=== PATIENT | female | born 1995 | race Hispanic/Latino ===

== ENCOUNTER 2016-06-05 09:29 | Emergency (ER) | payer OTHER, SELFPAY ==
[2016-06-05] MEDS ORDERED: KETOROLAC 30 MG/ML VIAL (J1885) As Ordered ONE (10:00)
[2016-06-05 10:25] LABS: BASO # 0.1 K/mm3 (0.0-0.2); BASO % 1.3 % (0.0-1.0); EOS # 0.1 K/mm3 (0.0-0.50); EOS % 1.8 % (0.0-3.0); LARGE UNSTAINED CELL # 0.1 K/mm3 (0.0-0.4); LARGE UNSTAINED CELL % 1.7 % (0.0-4.0); LYMPH # 1.7 K/mm3 (1.5-6.5); LYMPH % 27.8 % (24.0-44.0); MEAN CORPUSCULAR HEMOGLOBIN 26.2 pg (27.0-33.0); MEAN CORPUSCULAR HGB CONC 31.7 g/dl (32.0-36.5); MEAN CORPUSCULAR VOLUME 82.6 fl (80.0-96.0); MONO # 0.5 K/mm3 (0.0-0.8); MONO % 8.2 % (0.0-5.0); NEUTROPHILS # 3.4 K/mm3 (1.8-7.7); NEUTROPHILS % 59.3 % (36.0-66.0); PLATELET COUNT, AUTOMATED 258 k/mm3 (150-450); WHITE BLOOD COUNT 5.8 K/mm3 (4.0-10.0)
[2016-06-05 10:34] LABS: CALCIUM OXALATE CRYSTALS SMALL
[2016-06-05 10:41] LABS: ANION GAP 8 MEQ/L (8-16); BLOOD UREA NITROGEN 9 MG/DL (7-18); CALCIUM LEVEL 8.4 MG/DL (8.5-10.1); CARBON DIOXIDE LEVEL 25 MEQ/L (21-32); CHLORIDE LEVEL 108 MEQ/L (98-107); CREATININE FOR GFR 0.55 MG/DL (0.55-1.02); GLUCOSE, FASTING 89 MG/DL (70-105); HCG, SERUM QUANTITATIVE < 1.0 MIU/ML; POTASSIUM SERUM 4.3 MEQ/L (3.5-5.1); SODIUM LEVEL 141 MEQ/L (136-145)
--- NOTE | 2016-06-05 10:57 | REP ---
Clinical: Acute pelvic and adnexal pain. Rule out torsion . Technique: Transabdominal pelvic ultrasound followed by transvaginal examination for better evaluation of the endometrium and adnexa with color Doppler evaluation of the ovaries. Findings: Bladder is unremarkable and measures 3.2 x 3.3 x 2.1 cm . Normal anteverted uterus measures 8.3 x 5.5 x 3.8 cm . The endometrial complex measures 6.0 mm thickness. No discrete uterine or endometrial abnormalities are appreciated. Bilateral ovaries are normal in appearance and vascularity without evidence for torsion. Right ovary measures 3.5 x 2.5 x 2.1 cm ; R I = 0.53 . Left ovary measures 3.6 x 2.6 x 2.8 cm ; R I = 0.57 . Trace pelvic free fluid is nonspecific. . Impression: 1. Essentially normal pelvic ultrasound. No evidence for ovarian torsion. Signed by Awais Fisher MD 06/05/2016 10:47 A
--- NOTE | 2016-06-05 11:55 | EDDOCDS ---
Physician Documentation [facility] Name: Jessica Deluna Age: 20 yrs Sex: Female : 1995 Arrival Date: 06/05/2016 Time: 09:29 Bed I3 / M3 Private MD: NO PRIMARY PHYSICIAN, . Disposition: 06/05/16 11:44 Discharged to Home/Self Care. Impression: Abdominal and pelvic pain - LLQ, Constipation. - Condition is Stable. - Discharge Instructions: Abdominal Pain, Adult, Constipation, Adult. - Prescriptions for Magnesium Citrate Oral Solution - take 1 bottle by ORAL route once daily; 1 bottle. Miralax 17 gram/dose - take 17 gram by ORAL route once daily As needed dilute in 8 ounces of water or juice; 1 bottle. - Family Work Release, Medication Reconciliation, Local Pharmacy Hours, Work Release Form - 1 day form. - Follow up: Emergency Department; When: As needed. Follow up: Private Physician; When: Call to arrange an appointment; Reason: Wound/Symptom Recheck, Recheck today's complaints, Worsening of conditions, Continuance of care. - Problem is new. - Symptoms are resolved. Historical: - Allergies: No known drug Allergies; - Home Meds: 1. none - PMHx: Ovarian cyst; ectopic ; - PSHx: ectopic; - Social history: Smoking status: Patient states was never smoker of tobacco. No barriers to communication noted, The patient speaks fluent [place]ian. - Family history: Not pertinent. - : The pt / caregiver states he / she is not on anticoagulants. Home medication list is obtained from the patient. - Exposure Risk Screening:: None identified. CONSULTING IT ARCHITECT: 06/05 09:37 LMP 06/04/2016 kcs Vital Signs: 09:30 BP 114 / 62; Pulse 65; Resp 18; Temp 97.6(O); Pulse Ox 99% on R/A; Weight 97.07 kg / ct3 214 lbs (R); Height 5 ft. 3 in. (160.02 cm) (R); Pain 9/10; 10:41 Pain 7/10; dsf 11:54 BP 95 / 56; Pulse 56; Resp 16; Temp 97.5(O); Pulse Ox 100% ; Pain 5/10; kr3 09:30 Body Mass Index 37.91 (97.07 kg, 160.02 cm) ct3 MDM: 09:47 IV Saline Lock ordered. cc10 09:47 ketorolac 30 mg IVP once ordered. cc10 09:47 UCG by Nursing ordered. cc10 09:47 Undress patient appropriately for examination ordered. cc10 09:48 -US Pelvic Non-Ob Complete Ordered. EDMS 09:48 DUPLEX SCAN LIMITED (DOPPLER)+US Ordered. EDMS 09:48 CBC with Diff Ordered. EDMS 09:48 BMP Ordered. EDMS 09:48 Hcg, Serum Quantitative Ordered. EDMS 09:48 UA Ordered. EDMS 09:48 NOTHING BY MOUTH+DIET ordered. EDMS 10:12 Financial registration complete. lg 10:43 Transvaginal NON- US Ordered. EDMS 11:12 CBC with Diff Reviewed. cc10 11:12 BMP Reviewed. cc10 11:12 UA Reviewed. cc10 11:12 Hcg, Serum Quantitative Reviewed. cc10 11:12 -US Pelvic Non-Ob Complete Reviewed. cc10 11:16 CT ABD & PELVIS: No Contrast Ordered. EDMS Point of Care Testing: Urine : 10:10 hCG Reading: Negative; jam1 Ranges: Administered Medications: 10:06 Drug: ketorolac 30 mg [ketorolac 30 mg/mL (1 mL) injection solution (1 mL)] Route: IVP; kr3 Site: right hand; 10:41 Follow up: Pain 12/01 Adult dsf Signatures: Dispatcher [employer] Freida Johnson RN RN kcs Ganter, LoriLee, Reg Reg lg Robie, Kathleen, RN RN kr3 Fuller, Desiree, RN RN dsf Juan Ramon Mcdaniels PA-C PA-C cc10 MTDD
--- NOTE | 2016-06-05 11:55 | EDDOCDS ---
Nurse's Notes [facility] Name: Jessica Deluna Age: 20 yrs Sex: Female : 1995 Arrival Date: 06/05/2016 Time: 09:29 Bed I3 / M3 Private MD: NO PRIMARY PHYSICIAN, . Diagnosis: Abdominal and pelvic pain-LLQ;Constipation Presentation: 06/05 09:35 Presenting complaint: Patient states: she has had left lower abdomina pain since the kcs day before yesterday. Risk factors: the patient reports moderate vaginal bleeding. Adult Sepsis Screening: The patient does not have new or worsening altered mentation. Patient's respiratory rate is less than 22. Systolic blood pressure is greater than 100. Patient has a qSOFA score of 0- Negative Sepsis Screen. Suicide/Homicide risk assessment- the patient denies having any suicidal and/or homicidal ideations and does not present with any other emotional, behavioral or mental health complaints. Status: The patient is a dependent. Status: Transition of care: patient was not received from another setting of care. 09:35 Acuity: PASTOR Level 3 kcs 09:35 Method Of Arrival: Walkin/Carried/Asstd kcs 09:37 Presenting complaint: Patient states: since she had her ectopic her periods kcs have been different and this one is heavier - started this period 06/04/2016. Triage Assessment: 09:37 General: Appears comfortable, well developed, well nourished, well groomed, Behavior is kcs cooperative, flat. Pain: Location: left lower abdomen Pain currently is 9 out of 10 on a pain scale. Pt Declines HIV testing. Neurological: Level of Consciousness is awake, alert. Respiratory: Airway is patent Respiratory effort is even, unlabored, Respiratory pattern is regular, symmetrical. Derm: Skin is intact, is healthy with good turgor, Skin is dry, Skin is normal. 09:37 General: Appears face appears puffy. kcs SPRAGGER: 09:37 LMP 06/04/2016 kcs Historical: - Allergies: No known drug Allergies; - Home Meds: 1. none - PMHx: Ovarian cyst; ectopic ; - PSHx: ectopic; - Social history: Smoking status: Patient states was never smoker of tobacco. No barriers to communication noted, The patient speaks fluent [place] Island[place]. - Family history: Not pertinent. - : The pt / caregiver states he / she is not on anticoagulants. Home medication list is obtained from the patient. - Exposure Risk Screening:: None identified. Screenin:52 Screening information is obtained from the patient. Fall risk: No risks identified. kr3 Assistance ADL's: requires no assistance with activities of daily living. Abuse/DV Screen: The patient / caregiver reports he/she is: not in a situation that causes fear, pain or injury. Nutritional screening: No deficits noted. Advance Directives: Currently, there is no health care proxy. home support is adequate. Assessment: 10:08 Adult Sepsis Screening: The patient does not have new or worsening altered mentation. dsf Patient's respiratory rate is less than 22. Systolic blood pressure is greater than 100. Patient has a qSOFA score of 0- Negative Sepsis Screen. General: Appears uncomfortable, Behavior is fussy. Pain: Location: left lower quadrant Pain currently is 8.5 out of 10 on a pain scale. Quality of pain is described as sharp. Neurological: Level of Consciousness is awake, alert. Cardiovascular: Capillary refill < 3 seconds. Respiratory: Airway is patent Respiratory effort is even, unlabored, Respiratory pattern is regular, symmetrical. GI: Abdomen is non- distended. Derm: Skin is pink, warm & dry. 11:42 General: Appears in no apparent distress, comfortable, Behavior is appropriate for age, dsf cooperative. Pain: Location: left lower quadrant Pain currently is 5 out of 10 on a pain scale. Neurological: Level of Consciousness is awake, alert. Cardiovascular: Capillary refill < 3 seconds Heart tones S1 S2 present. Respiratory: Airway is patent Respiratory effort is even, unlabored, Respiratory pattern is regular, symmetrical, Breath sounds are clear bilaterally. GI: Abdomen is non- distended Bowel sounds present X 4 quads. Abd is soft X 4 quads Abd is tender to palpation X 4 quads. Derm: Skin is pink, warm & dry. Vital Signs: 09:30 BP 114 / 62; Pulse 65; Resp 18; Temp 97.6(O); Pulse Ox 99% on R/A; Weight 97.07 kg (R); ct3 Height 5 ft. 3 in. (160.02 cm) (R); Pain 9/10; 10:41 Pain 7/10; dsf 11:54 BP 95 / 56; Pulse 56; Resp 16; Temp 97.5(O); Pulse Ox 100% ; Pain 5/10; kr3 09:30 Body Mass Index 37.91 (97.07 kg, 160.02 cm) ct3 Vitals: 09:30 Log In Time: June 05, 2016 at 09:28. ct3 ED Course: 09:29 Patient visited by Eusebia Duenas PCA. ct3 09:29 Patient moved to Waiting ct3 09:30 NO PRIMARY PHYSICIAN, . is Private Physician. ct3 09:31 Patient moved to Pre RCE ct3 09:36 Triage Initiated kcs 09:40 Juan Ramon Mcdaniels PA-C is PHCP. cc10 09:40 Diaz Kinney MD is Attending Physician. cc10 09:40 Patient moved to Triage 1 kcs 09:41 Patient visited by Juan Ramon Mcdaniels PA-C. cc10 09:41 Patient visited by Juan Ramon Mcdaniels PA-C. cc10 09:53 Patient moved to I3 / M3 jam1 10:08 UA Sent. dsf 10:08 Hcg, Serum Quantitative Sent. dsf 10:08 BMP Sent. dsf 10:08 CBC with Diff Sent. dsf 10:08 Inserted saline lock: 20 gauge in right hand The patient tolerated the procedure well. dsf 10:09 Patient visited by Tina Monet RN. dsf 10:20 Patient moved to Ultrasound am10 10:40 Patient moved to I3 / M3 dsf 11:02 -US Pelvic Non-Ob Complete Returned. EDMS 11:07 Patient visited by Alla Bower RN. kr3 11:38 Patient name changed from Jessica\S\\S\Deluna\S\ to Jessica\S\ \S\Deluna. EDMS 11:43 Patient visited by Tina Monet,ELEANOR. dsf 11:53 The patient / caregiver is instructed regarding the plan of care and ED course. kr3 Accompanied by Family Member, Patient has correct armband on for positive identification. Placed in gown. Bed in low position. Call light in reach. Side rails up X 1. 11:53 Discontinued lock intact, bleeding controlled, pressure dressing applied, No kr3 redness/swelling at site. No procedures done that require assistance. Administered Medications: 10:06 Drug: ketorolac 30 mg [ketorolac 30 mg/mL (1 mL) injection solution (1 mL)] Route: IVP; kr3 Site: right hand; 10:41 Follow up: Pain 12/01 Adult dsf Point of Care Testing: Urine : 10:10 hCG Reading: Negative; jam1 Ranges: Order Results: Lab Order: CBC with Diff; SPEC'M 06/05/16 10:06 Test: WHITE BLOOD COUNT; Value: 5.8; Range: 4.0-10.0; Units: K/mm3; Status: F Test: RED BLOOD COUNT; Value: 4.49; Range: 4.00-5.40; Units: M/mm3; Status: F Test: HEMOGLOBIN; Value: 11.8; Range: 12.0-16.0; Abnormal: Below low normal; Units: g/dl; Status: F Test: HEMATOCRIT; Value: 37.1; Range: 36.0-47.0; Units: %; Status: F Test: MEAN CORPUSCULAR VOLUME; Value: 82.6; Range: 80.0-96.0; Units: fl; Status: F Test: MEAN CORPUSCULAR HEMOGLOBIN; Value: 26.2; Range: 27.0-33.0; Abnormal: Below low normal; Units: pg; Status: F Test: MEAN CORPUSCULAR HGB CONC; Value: 31.7; Range: 32.0-36.5; Abnormal: Below low normal; Units: g/dl; Status: F Test: RED CELL DISTRIBUTION WIDTH; Value: 16.0; Range: 11.5-14.5; Abnormal: Above high normal; Units: %; Status: F Test: PLATELET COUNT, AUTOMATED; Value: 258; Range: 150-450; Units: k/mm3; Status: F Test: NEUTROPHILS %; Value: 59.3; Range: 36.0-66.0; Units: %; Status: F Test: LYMPH %; Value: 27.8; Range: 24.0-44.0; Units: %; Status: F Test: MONO %; Value: 8.2; Range: 0.0-5.0; Abnormal: Above high normal; Units: %; Status: F Test: EOS %; Value: 1.8; Range: 0.0-3.0; Units: %; Status: F Test: BASO %; Value: 1.3; Range: 0.0-1.0; Abnormal: Above high normal; Units: %; Status: F Test: LARGE UNSTAINED CELL %; Value: 1.7; Range: 0.0-4.0; Units: %; Status: F Test: NEUTROPHILS #; Value: 3.4; Range: 1.8-7.7; Units: K/mm3; Status: F Test: LYMPH #; Value: 1.7; Range: 1.5-6.5; Units: K/mm3; Status: F Test: MONO #; Value: 0.5; Range: 0.0-0.8; Units: K/mm3; Status: F Test: EOS #; Value: 0.1; Range: 0.0-0.50; Units: K/mm3; Status: F Test: BASO #; Value: 0.1; Range: 0.0-0.2; Units: K/mm3; Status: F Test: LARGE UNSTAINED CELL #; Value: 0.1; Range: 0.0-0.4; Units: K/mm3; Status: F Lab Order: [facility]; SPEC'M 06/05/16 10:06 Test: GLUCOSE, FASTING; Value: 89; Range: 70-105; Units: MG/DL; Status: F Test: BLOOD UREA NITROGEN; Value: 9; Range: 7-18; Units: MG/DL; Status: F Test: CREATININE FOR GFR; Value: 0.55; Range: 0.55-1.02; Units: MG/DL; Status: F Test: SODIUM LEVEL; Value: 141; Range: 136-145; Units: MEQ/L; Status: F Test: POTASSIUM SERUM; Value: 4.3; Range: 3.5-5.1; Units: MEQ/L; Status: F Test: CHLORIDE LEVEL; Value: 108; Range: 98-107; Abnormal: Above high normal; Units: MEQ/L; Status: F Test: CARBON DIOXIDE LEVEL; Value: 25; Range: 21-32; Units: MEQ/L; Status: F Test: ANION GAP; Value: 8; Range: 8-16; Units: MEQ/L; Status: F Test: CALCIUM LEVEL; Value: 8.4; Range: 8.5-10.1; Abnormal: Below low normal; Units: MG/DL; Status: F Lab Order: Hcg, Serum Quantitative; SPEC'M 06/05/16 10:06 Test: HCG, SERUM QUANTITATIVE; Value: < 1.0; Units: MIU/ML; Status: F Test Note: ; GESTATIONAL AGE APPROXIMATE HCG RANGE (MIU/ML) 0.2-1 WEEK 5-50 1-2 WEEKS 50-500 2-3 WEEKS 100-5,000 3-4 WEEKS 500-10,000 4-5 WEEKS 1,000-50,000 5-6 WEEKS 10,000-100,000 6-8 WEEKS 15,000-200,000 2-3 MONTHS 10,000-100,000 NON FEMALES LESS THAN 3.0 Patient samples may contain human heterophilic antibodies that could react with immunoassays to give falsely elevated or depressed results. This assay has been designed to minimize interference from heterophilic antibodies. Elevated hCG levels have also been associated with trophoblastic disease and nontrophoblastic neoplasms. The possibility of having these diseases should be considered before a diagnosis of is made. This test is not intended for use as a surrogate marker for aiding in the diagnosis or monitoring the treatment of cancer patients. Siemens Meme methodology. Lab Order: UA; SPEC'M 06/05/16 10:06 Test: APPEARANCE, URINE; Value: HAZY; Range: CLEAR; Status: F Test: COLOR, URINE; Value: YELLOW; Range: YELLOW; Status: F Test: PH,URINE; Value: 5.0; Range: 5.0-9.0; Units: UNITS; Status: F Test: SPECIFIC GRAVITY URINE AUTO; Value: 1.020; Range: 1.002-1.035; Status: F Test: PROTEIN, URINE AUTO; Value: 1+; Range: NEGATIVE; Abnormal: Above high normal; Units: mg/dL; Status: F Test: GLUCOSE, URINE (UA) AUTO; Value: NEGATIVE; Range: NEGATIVE; Units: mg/dL; Status: F Test: KETONE, URINE AUTO; Value: NEGATIVE; Range: NEGATIVE; Units: mg/dL; Status: F Test: UROBILINOGEN, URINE AUTO; Value: 0.2; Range: 0.0-2.0; Units: mg/dL; Status: F Test: BILIRUBIN, URINE AUTO; Value: NEGATIVE; Range: NEGATIVE; Status: F Test: NITRITE, URINE AUTO; Value: NEGATIVE; Range: NEGATIVE; Status: F Test: LEUKOCYTE ESTERASE, URINE AUTO; Value: TRACE; Range: NEGATIVE; Abnormal: Above high normal; Status: F Test: BLOOD, URINE BLOOD; Value: 3+; Range: NEGATIVE; Abnormal: Above high normal; Status: F Test: WBC, URINE AUTO; Value: 13; Range: 0-3; Abnormal: Above high normal; Units: /HPF; Status: F Test: RBC, URINE AUTO; Value: TNTC; Range: 0-3; Abnormal: Above high normal; Units: /HPF; Status: F Test: BACTERIA, URINE AUTO; Value: NEGATIVE; Range: NEGATIVE; Status: F Test: SQUAMOUS EPITHELIAL CELL UR AU; Value: 3; Range: 0-6; Units: /HPF; Status: F Test: MUCUS, URINE; Value: SMALL; Range: NEGATIVE; Status: F Test: HYALINE CAST, URINE AUTO; Value: 0; Range: 0-1; Units: /LPF; Status: F Test: CALCIUM OXALATE CRYSTALS; Value: SMALL; Range: NONE; Status: F Radiology Order: -US Pelvic Non-Ob Complete Test: -US Pelvic Non-Ob Complete REASON FOR EXAMINATION: Adnexal Pain r/o Torsion; Clinical: Acute pelvic and adnexal pain. Rule out torsion .; ; Technique: Transabdominal pelvic ultrasound followed by transvaginal examination; for better evaluation of the endometrium and adnexa with color Doppler evaluation; of the ovaries.; ; Findings:; ; Bladder is unremarkable and measures 3.2 x 3.3 x 2.1 cm .; ; Normal anteverted uterus measures 8.3 x 5.5 x 3.8 cm . The endometrial complex; measures 6.0 mm thickness. No discrete uterine or endometrial abnormalities are; appreciated.; ; Bilateral ovaries are normal in appearance and vascularity without evidence for; torsion. Right ovary measures 3.5 x 2.5 x 2.1 cm ; R I = 0.53 . Left ovary; measures 3.6 x 2.6 x 2.8 cm ; R I = 0.57 .; ; Trace pelvic free fluid is nonspecific. .; ; Impression:; 1. Essentially normal pelvic ultrasound. No evidence for ovarian torsion.; ; ; Signed by; Awais Fisher MD 06/05/2016 10:47 A; Outcome: 11:44 Discharge ordered by Provider. cc10 11:53 Discharge Assessment: patient administered narcotics - no. The following High Risk kr3 Discharge criteria are identified: None. Discharged to home ambulatory, with family. Condition: stable. Discharge instructions given to patient, Instructed on discharge instructions, follow up and referral plans. medication usage, Demonstrated understanding of instructions, medications, Pt was receptive of discharge instructions/ teaching. Prescriptions given X 2. CT Study completed. Property sent home with patient. 11:54 Patient left the ED. kr3 Signatures: Dispatcher [employer] EDMS Freida Bauer, RN RN Lisa Mabry, HEALTH PROMOTION EDUCATOR HEALTH PROMOTION EDUCATOR jam1 Alla Bower RN RN kr3 Yana Graves am10 Eusebia Duenas, HEALTH PROMOTION EDUCATOR HEALTH PROMOTION EDUCATOR ct3 Tina Monet RN RN Juan Ramon oVgt, PA-C PA-C cc10 MTDD
--- NOTE | 2016-06-05 12:45 | REP ---
Clinical: Left flank pain. Findings: Lung bases clear. Liver, spleen, pancreas, gallbladder, bilateral adrenal glands and kidneys are normal for noncontrast evaluation. The enteric system demonstrates moderate fecal stasis and possible constipation along with mesenteric and right lower quadrant lymph nodes which may reflect adenitis. There is no evidence for bowel obstruction or acute inflammatory process and a normal terminal ileum and appendix are identified in the right lower quadrant. Pelvis demonstrates normal bladder and age-appropriate uterus/adnexa. No ascites. No free air. No significant retroperitoneal adenopathy. Vasculature appears normal. Surrounding musculoskeletal structures are intact. Impression: Cannot exclude fecal stasis and constipation as well as mesenteric adenitis. Signed by Awais Fisher MD 06/05/2016 11:35 A
--- NOTE | 2016-06-07 12:55 | EDDOCDS ---
Nurse's Notes [facility] Name: Jessica Deluna Age: 20 yrs Sex: Female : 1995 Arrival Date: 06/05/2016 Time: 09:29 Bed I3 / M3 Private MD: NO PRIMARY PHYSICIAN, . Diagnosis: Abdominal and pelvic pain-LLQ;Constipation Presentation: 06/05 09:35 Presenting complaint: Patient states: she has had left lower abdomina pain since the kcs day before yesterday. Risk factors: the patient reports moderate vaginal bleeding. Adult Sepsis Screening: The patient does not have new or worsening altered mentation. Patient's respiratory rate is less than 22. Systolic blood pressure is greater than 100. Patient has a qSOFA score of 0- Negative Sepsis Screen. Suicide/Homicide risk assessment- the patient denies having any suicidal and/or homicidal ideations and does not present with any other emotional, behavioral or mental health complaints. Status: The patient is a dependent. Status: Transition of care: patient was not received from another setting of care. 09:35 Acuity: PASTOR Level 3 kcs 09:35 Method Of Arrival: Walkin/Carried/Asstd kcs 09:37 Presenting complaint: Patient states: since she had her ectopic her periods kcs have been different and this one is heavier - started this period 06/04/2016. Triage Assessment: 09:37 General: Appears comfortable, well developed, well nourished, well groomed, Behavior is kcs cooperative, flat. Pain: Location: left lower abdomen Pain currently is 9 out of 10 on a pain scale. Pt Declines HIV testing. Neurological: Level of Consciousness is awake, alert. Respiratory: Airway is patent Respiratory effort is even, unlabored, Respiratory pattern is regular, symmetrical. Derm: Skin is intact, is healthy with good turgor, Skin is dry, Skin is normal. 09:37 General: Appears face appears puffy. kcs WOOD FLOUR MILLER: 09:37 LMP 06/04/2016 kcs Historical: - Allergies: No known drug Allergies; - Home Meds: 1. none - PMHx: Ovarian cyst; ectopic ; - PSHx: ectopic; - Social history: Smoking status: Patient states was never smoker of tobacco. No barriers to communication noted, The patient speaks fluent Taiwanese. - Family history: Not pertinent. - : The pt / caregiver states he / she is not on anticoagulants. Home medication list is obtained from the patient. - Exposure Risk Screening:: None identified. Screenin:52 Screening information is obtained from the patient. Fall risk: No risks identified. kr3 Assistance ADL's: requires no assistance with activities of daily living. Abuse/DV Screen: The patient / caregiver reports he/she is: not in a situation that causes fear, pain or injury. Nutritional screening: No deficits noted. Advance Directives: Currently, there is no health care proxy. home support is adequate. Assessment: 10:08 Adult Sepsis Screening: The patient does not have new or worsening altered mentation. dsf Patient's respiratory rate is less than 22. Systolic blood pressure is greater than 100. Patient has a qSOFA score of 0- Negative Sepsis Screen. General: Appears uncomfortable, Behavior is fussy. Pain: Location: left lower quadrant Pain currently is 8.5 out of 10 on a pain scale. Quality of pain is described as sharp. Neurological: Level of Consciousness is awake, alert. Cardiovascular: Capillary refill < 3 seconds. Respiratory: Airway is patent Respiratory effort is even, unlabored, Respiratory pattern is regular, symmetrical. GI: Abdomen is non- distended. Derm: Skin is pink, warm & dry. 11:42 General: Appears in no apparent distress, comfortable, Behavior is appropriate for age, dsf cooperative. Pain: Location: left lower quadrant Pain currently is 5 out of 10 on a pain scale. Neurological: Level of Consciousness is awake, alert. Cardiovascular: Capillary refill < 3 seconds Heart tones S1 S2 present. Respiratory: Airway is patent Respiratory effort is even, unlabored, Respiratory pattern is regular, symmetrical, Breath sounds are clear bilaterally. GI: Abdomen is non- distended Bowel sounds present X 4 quads. Abd is soft X 4 quads Abd is tender to palpation X 4 quads. Derm: Skin is pink, warm & dry. Vital Signs: 09:30 BP 114 / 62; Pulse 65; Resp 18; Temp 97.6(O); Pulse Ox 99% on R/A; Weight 97.07 kg (R); ct3 Height 5 ft. 3 in. (160.02 cm) (R); Pain 9/10; 10:41 Pain 7/10; dsf 11:54 BP 95 / 56; Pulse 56; Resp 16; Temp 97.5(O); Pulse Ox 100% ; Pain 5/10; kr3 09:30 Body Mass Index 37.91 (97.07 kg, 160.02 cm) ct3 Vitals: 09:30 Log In Time: June 05, 2016 at 09:28. ct3 ED Course: 09:29 Patient visited by Eusebia Duenas PCA. ct3 09:29 Patient moved to Waiting ct3 09:30 NO PRIMARY PHYSICIAN, . is Private Physician. ct3 09:31 Patient moved to Pre RCE ct3 09:36 Triage Initiated kcs 09:40 Juan Ramon Mcdaniels PA-C is PHCP. cc10 09:40 Diaz Kinney MD is Attending Physician. cc10 09:40 Patient moved to Triage 1 kcs 09:41 Patient visited by Juan Ramon Mcdaniels PA-C. cc10 09:41 Patient visited by Juan Ramon Mcdaniels PA-C. cc10 09:53 Patient moved to I3 / M3 jam1 10:08 UA Sent. dsf 10:08 Hcg, Serum Quantitative Sent. dsf 10:08 BMP Sent. dsf 10:08 CBC with Diff Sent. dsf 10:08 Inserted saline lock: 20 gauge in right hand The patient tolerated the procedure well. dsf 10:09 Patient visited by Tina Monet RN. dsf 10:20 Patient moved to Ultrasound am10 10:40 Patient moved to I3 / M3 dsf 11:02 -US Pelvic Non-Ob Complete Returned. EDMS 11:07 Patient visited by Alla Bower RN. kr3 11:38 Patient name changed from Jessica\S\\S\Deluna\S\ to Jessica\S\ \S\Deluna. EDMS 11:43 Patient visited by Tina Monet,ELEANOR. dsf 11:53 The patient / caregiver is instructed regarding the plan of care and ED course. kr3 Accompanied by Family Member, Patient has correct armband on for positive identification. Placed in gown. Bed in low position. Call light in reach. Side rails up X 1. 11:53 Discontinued lock intact, bleeding controlled, pressure dressing applied, No kr3 redness/swelling at site. No procedures done that require assistance. 13:02 CT ABD & PELVIS: No Contrast Returned. EDMS 13:55 T-Sheet-- Draft Copy was scanned into [employer] and attached to record. 14:16 [facility] [place] was [place] into [employer] and attached to record. lg Administered Medications: 10:06 Drug: ketorolac 30 mg [ketorolac 30 mg/mL (1 mL) injection solution (1 mL)] Route: IVP; kr3 Site: right hand; 10:41 Follow up: Pain 12/01 Adult dsf Point of Care Testing: Urine : 10:10 hCG Reading: Negative; jam1 Ranges: Order Results: Lab Order: CBC with Diff; SPEC'M 06/05/16 10:06 Test: WHITE BLOOD COUNT; Value: 5.8; Range: 4.0-10.0; Units: K/mm3; Status: F Test: RED BLOOD COUNT; Value: 4.49; Range: 4.00-5.40; Units: M/mm3; Status: F Test: HEMOGLOBIN; Value: 11.8; Range: 12.0-16.0; Abnormal: Below low normal; Units: g/dl; Status: F Test: HEMATOCRIT; Value: 37.1; Range: 36.0-47.0; Units: %; Status: F Test: MEAN CORPUSCULAR VOLUME; Value: 82.6; Range: 80.0-96.0; Units: fl; Status: F Test: MEAN CORPUSCULAR HEMOGLOBIN; Value: 26.2; Range: 27.0-33.0; Abnormal: Below low normal; Units: pg; Status: F Test: MEAN CORPUSCULAR HGB CONC; Value: 31.7; Range: 32.0-36.5; Abnormal: Below low normal; Units: g/dl; Status: F Test: RED CELL DISTRIBUTION WIDTH; Value: 16.0; Range: 11.5-14.5; Abnormal: Above high normal; Units: %; Status: F Test: PLATELET COUNT, AUTOMATED; Value: 258; Range: 150-450; Units: k/mm3; Status: F Test: NEUTROPHILS %; Value: 59.3; Range: 36.0-66.0; Units: %; Status: F Test: LYMPH %; Value: 27.8; Range: 24.0-44.0; Units: %; Status: F Test: MONO %; Value: 8.2; Range: 0.0-5.0; Abnormal: Above high normal; Units: %; Status: F Test: EOS %; Value: 1.8; Range: 0.0-3.0; Units: %; Status: F Test: BASO %; Value: 1.3; Range: 0.0-1.0; Abnormal: Above high normal; Units: %; Status: F Test: LARGE UNSTAINED CELL %; Value: 1.7; Range: 0.0-4.0; Units: %; Status: F Test: NEUTROPHILS #; Value: 3.4; Range: 1.8-7.7; Units: K/mm3; Status: F Test: LYMPH #; Value: 1.7; Range: 1.5-6.5; Units: K/mm3; Status: F Test: MONO #; Value: 0.5; Range: 0.0-0.8; Units: K/mm3; Status: F Test: EOS #; Value: 0.1; Range: 0.0-0.50; Units: K/mm3; Status: F Test: BASO #; Value: 0.1; Range: 0.0-0.2; Units: K/mm3; Status: F Test: LARGE UNSTAINED CELL #; Value: 0.1; Range: 0.0-0.4; Units: K/mm3; Status: F Lab Order: [facility]; SPEC'M 06/05/16 10:06 Test: GLUCOSE, FASTING; Value: 89; Range: 70-105; Units: MG/DL; Status: F Test: BLOOD UREA NITROGEN; Value: 9; Range: 7-18; Units: MG/DL; Status: F Test: CREATININE FOR GFR; Value: 0.55; Range: 0.55-1.02; Units: MG/DL; Status: F Test: SODIUM LEVEL; Value: 141; Range: 136-145; Units: MEQ/L; Status: F Test: POTASSIUM SERUM; Value: 4.3; Range: 3.5-5.1; Units: MEQ/L; Status: F Test: CHLORIDE LEVEL; Value: 108; Range: 98-107; Abnormal: Above high normal; Units: MEQ/L; Status: F Test: CARBON DIOXIDE LEVEL; Value: 25; Range: 21-32; Units: MEQ/L; Status: F Test: ANION GAP; Value: 8; Range: 8-16; Units: MEQ/L; Status: F Test: CALCIUM LEVEL; Value: 8.4; Range: 8.5-10.1; Abnormal: Below low normal; Units: MG/DL; Status: F Lab Order: Hcg, Serum Quantitative; SPEC'M 06/05/16 10:06 Test: HCG, SERUM QUANTITATIVE; Value: < 1.0; Units: MIU/ML; Status: F Test Note: ; GESTATIONAL AGE APPROXIMATE HCG RANGE (MIU/ML) 0.2-1 WEEK 5-50 1-2 WEEKS 50-500 2-3 WEEKS 100-5,000 3-4 WEEKS 500-10,000 4-5 WEEKS 1,000-50,000 5-6 WEEKS 10,000-100,000 6-8 WEEKS 15,000-200,000 2-3 MONTHS 10,000-100,000 NON FEMALES LESS THAN 3.0 Patient samples may contain human heterophilic antibodies that could react with immunoassays to give falsely elevated or depressed results. This assay has been designed to minimize interference from heterophilic antibodies. Elevated hCG levels have also been associated with trophoblastic disease and nontrophoblastic neoplasms. The possibility of having these diseases should be considered before a diagnosis of is made. This test is not intended for use as a surrogate marker for aiding in the diagnosis or monitoring the treatment of cancer patients. [employer] methodology. Lab Order: UA; SPEC'M 06/05/16 10:06 Test: APPEARANCE, URINE; Value: HAZY; Range: CLEAR; Status: F Test: COLOR, URINE; Value: YELLOW; Range: YELLOW; Status: F Test: PH,URINE; Value: 5.0; Range: 5.0-9.0; Units: UNITS; Status: F Test: SPECIFIC GRAVITY URINE AUTO; Value: 1.020; Range: 1.002-1.035; Status: F Test: PROTEIN, URINE AUTO; Value: 1+; Range: NEGATIVE; Abnormal: Above high normal; Units: mg/dL; Status: F Test: GLUCOSE, URINE (UA) AUTO; Value: NEGATIVE; Range: NEGATIVE; Units: mg/dL; Status: F Test: KETONE, URINE AUTO; Value: NEGATIVE; Range: NEGATIVE; Units: mg/dL; Status: F Test: UROBILINOGEN, URINE AUTO; Value: 0.2; Range: 0.0-2.0; Units: mg/dL; Status: F Test: BILIRUBIN, URINE AUTO; Value: NEGATIVE; Range: NEGATIVE; Status: F Test: NITRITE, URINE AUTO; Value: NEGATIVE; Range: NEGATIVE; Status: F Test: LEUKOCYTE ESTERASE, URINE AUTO; Value: TRACE; Range: NEGATIVE; Abnormal: Above high normal; Status: F Test: BLOOD, URINE BLOOD; Value: 3+; Range: NEGATIVE; Abnormal: Above high normal; Status: F Test: WBC, URINE AUTO; Value: 13; Range: 0-3; Abnormal: Above high normal; Units: /HPF; Status: F Test: RBC, URINE AUTO; Value: TNTC; Range: 0-3; Abnormal: Above high normal; Units: /HPF; Status: F Test: BACTERIA, URINE AUTO; Value: NEGATIVE; Range: NEGATIVE; Status: F Test: SQUAMOUS EPITHELIAL CELL UR AU; Value: 3; Range: 0-6; Units: /HPF; Status: F Test: MUCUS, URINE; Value: SMALL; Range: NEGATIVE; Status: F Test: HYALINE CAST, URINE AUTO; Value: 0; Range: 0-1; Units: /LPF; Status: F Test: CALCIUM OXALATE CRYSTALS; Value: SMALL; Range: NONE; Status: F Radiology Order: -US Pelvic Non-Ob Complete Test: -US Pelvic Non-Ob Complete REASON FOR EXAMINATION: Adnexal Pain r/o Torsion; Clinical: Acute pelvic and adnexal pain. Rule out torsion .; ; Technique: Transabdominal pelvic ultrasound followed by transvaginal examination; for better evaluation of the endometrium and adnexa with color Doppler evaluation; of the ovaries.; ; Findings:; ; Bladder is unremarkable and measures 3.2 x 3.3 x 2.1 cm .; ; Normal anteverted uterus measures 8.3 x 5.5 x 3.8 cm . The endometrial complex; measures 6.0 mm thickness. No discrete uterine or endometrial abnormalities are; appreciated.; ; Bilateral ovaries are normal in appearance and vascularity without evidence for; torsion. Right ovary measures 3.5 x 2.5 x 2.1 cm ; R I = 0.53 . Left ovary; measures 3.6 x 2.6 x 2.8 cm ; R I = 0.57 .; ; Trace pelvic free fluid is nonspecific. .; ; Impression:; 1. Essentially normal pelvic ultrasound. No evidence for ovarian torsion.; ; ; Signed by; Awais Fisher MD 06/05/2016 10:47 A; Radiology Order: CT ABD & PELVIS: No Contrast Test: CT ABD & PELVIS: No Contrast REASON FOR EXAMINATION: Renal colic; Clinical: Left flank pain.; ; Findings:; Lung bases clear.; ; Liver, spleen, pancreas, gallbladder, bilateral adrenal glands and kidneys are; normal for noncontrast evaluation. The enteric system demonstrates moderate; fecal stasis and possible constipation along with mesenteric and right lower; quadrant lymph nodes which may reflect adenitis. There is no evidence for bowel; obstruction or acute inflammatory process and a normal terminal ileum and; appendix are identified in the right lower quadrant. Pelvis demonstrates normal; bladder and age-appropriate uterus/adnexa. No ascites. No free air. No; significant retroperitoneal adenopathy. Vasculature appears normal. Surrounding; musculoskeletal structures are intact.; ; Impression:; Cannot exclude fecal stasis and constipation as well as mesenteric adenitis.; ; ; Signed by; Awais Fisher MD 06/05/2016 11:35 A; Outcome: 11:44 Discharge ordered by Provider. cc10 11:53 Discharge Assessment: patient administered narcotics - no. The following High Risk kr3 Discharge criteria are identified: None. Discharged to home ambulatory, with family. Condition: stable. Discharge instructions given to patient, Instructed on discharge instructions, follow up and referral plans. medication usage, Demonstrated understanding of instructions, medications, Pt was receptive of discharge instructions/ teaching. Prescriptions given X 2. CT Study completed. Property sent home with patient. 11:54 Patient left the ED. kr3 Signatures: Dispatcher [employer] EDMS Freida Bauer, RN RN Lisa Mabry, WINDOWS DESKTOP SUPPORT WINDOWS DESKTOP SUPPORT jam1 Jane Hoyos, Reg Reg gb Pamela Norton, Reg Reg lg Alla Bower RN RN kr3 Yana Graves am10 Eusebia Duenas, WINDOWS DESKTOP SUPPORT WINDOWS DESKTOP SUPPORT ct3 Tina Monet RN RN dsf [place], Juan Ramon, PA-C PA-C cc10 Chart Complete MTDD
--- NOTE | 2016-06-07 12:55 | EDDOCDS ---
Physician Documentation [facility] Name: Jessica Deluna Age: 20 yrs Sex: Female : 1995 Arrival Date: 06/05/2016 Time: 09:29 Bed I3 / M3 Private MD: NO PRIMARY PHYSICIAN, . Disposition: 06/05/16 11:44 Discharged to Home/Self Care. Impression: Abdominal and pelvic pain - LLQ, Constipation. - Condition is Stable. - Discharge Instructions: Abdominal Pain, Adult, Constipation, Adult. - Prescriptions for Magnesium Citrate Oral Solution - take 1 bottle by ORAL route once daily; 1 bottle. Miralax 17 gram/dose - take 17 gram by ORAL route once daily As needed dilute in 8 ounces of water or juice; 1 bottle. - Family Work Release, Medication Reconciliation, Local Pharmacy Hours, Work Release Form - 1 day form. - Follow up: Emergency Department; When: As needed. Follow up: Private Physician; When: Call to arrange an appointment; Reason: Wound/Symptom Recheck, Recheck today's complaints, Worsening of conditions, Continuance of care. - Problem is new. - Symptoms are resolved. Historical: - Allergies: No known drug Allergies; - Home Meds: 1. none - PMHx: Ovarian cyst; ectopic ; - PSHx: ectopic; - Social history: Smoking status: Patient states was never smoker of tobacco. No barriers to communication noted, The patient speaks fluent [place]guill[place]. - Family history: Not pertinent. - : The pt / caregiver states he / she is not on anticoagulants. Home medication list is obtained from the patient. - Exposure Risk Screening:: None identified. RN GYN: 06/05 09:37 LMP 06/04/2016 kcs Vital Signs: 09:30 BP 114 / 62; Pulse 65; Resp 18; Temp 97.6(O); Pulse Ox 99% on R/A; Weight 97.07 kg / ct3 214 lbs (R); Height 5 ft. 3 in. (160.02 cm) (R); Pain 9/10; 10:41 Pain 7/10; dsf 11:54 BP 95 / 56; Pulse 56; Resp 16; Temp 97.5(O); Pulse Ox 100% ; Pain 5/10; kr3 09:30 Body Mass Index 37.91 (97.07 kg, 160.02 cm) ct3 MDM: 09:47 IV Saline Lock ordered. cc10 09:47 ketorolac 30 mg IVP once ordered. cc10 09:47 UCG by Nursing ordered. cc10 09:47 Undress patient appropriately for examination ordered. cc10 09:48 -US Pelvic Non-Ob Complete Ordered. EDMS 09:48 DUPLEX SCAN LIMITED (DOPPLER)+US Ordered. EDMS 09:48 CBC with Diff Ordered. EDMS 09:48 BMP Ordered. EDMS 09:48 Hcg, Serum Quantitative Ordered. EDMS 09:48 UA Ordered. EDMS 09:48 NOTHING BY MOUTH+DIET ordered. EDMS 10:12 Financial registration complete. lg 10:43 Transvaginal NON- US Ordered. EDMS 11:12 CBC with Diff Reviewed. cc10 11:12 BMP Reviewed. cc10 11:12 UA Reviewed. cc10 11:12 Hcg, Serum Quantitative Reviewed. cc10 11:12 -US Pelvic Non-Ob Complete Reviewed. cc10 11:16 CT ABD & PELVIS: No Contrast Ordered. EDMS 13:55 T-Sheet-- Draft Copy was scanned into [employer] and attached to record. gb 14:16 [facility] Payment Agreement was scanned into [employer] and attached to record. Point of Care Testing: Urine : 10:10 hCG Reading: Negative; jam1 Ranges: Administered Medications: 10:06 Drug: ketorolac 30 mg [ketorolac 30 mg/mL (1 mL) injection solution (1 mL)] Route: IVP; kr3 Site: right hand; 10:41 Follow up: Pain 12/01 Adult dsf Signatures: Dispatcher [employer] Freida Johnson, RN RN Jane Fuller, Reg Reg gb Pamela Norton, Reg Reg lg Alla Bower RN RN kr3 Tina Monet RN RN dsf Juan Ramon Mcdaniels, PATatiana PATatiana cc10 The chart was reviewed and I authenticate all verbal orders and agree with the evaluation and treatment provided.Attachments: 13:55 T-Sheet-- Draft Copy gb 14:16 [facility] Payment Agreement lg Chart Complete MTDD
--- NOTE | 2016-06-07 12:55 | EDDOCDS ---
Physician Documentation [facility] Name: Jessica Deluna Age: 20 yrs Sex: Female : 1995 Arrival Date: 06/05/2016 Time: 09:29 Bed I3 / M3 Private MD: NO PRIMARY PHYSICIAN, . Disposition: 06/05/16 11:44 Discharged to Home/Self Care. Impression: Abdominal and pelvic pain - LLQ, Constipation. - Condition is Stable. - Discharge Instructions: Abdominal Pain, Adult, Constipation, Adult. - Prescriptions for Magnesium Citrate Oral Solution - take 1 bottle by ORAL route once daily; 1 bottle. Miralax 17 gram/dose - take 17 gram by ORAL route once daily As needed dilute in 8 ounces of water or juice; 1 bottle. - Family Work Release, Medication Reconciliation, Local Pharmacy Hours, Work Release Form - 1 day form. - Follow up: Emergency Department; When: As needed. Follow up: Private Physician; When: Call to arrange an appointment; Reason: Wound/Symptom Recheck, Recheck today's complaints, Worsening of conditions, Continuance of care. - Problem is new. - Symptoms are resolved. Historical: - Allergies: No known drug Allergies; - Home Meds: 1. none - PMHx: Ovarian cyst; ectopic ; - PSHx: ectopic; - Social history: Smoking status: Patient states was never smoker of tobacco. No barriers to communication noted, The patient speaks fluent [place]. - Family history: Not pertinent. - : The pt / caregiver states he / she is not on anticoagulants. Home medication list is obtained from the patient. - Exposure Risk Screening:: None identified. ENGINEER PROCESS: 06/05 09:37 LMP 06/04/2016 kcs Vital Signs: 09:30 BP 114 / 62; Pulse 65; Resp 18; Temp 97.6(O); Pulse Ox 99% on R/A; Weight 97.07 kg / ct3 214 lbs (R); Height 5 ft. 3 in. (160.02 cm) (R); Pain 9/10; 10:41 Pain 7/10; dsf 11:54 BP 95 / 56; Pulse 56; Resp 16; Temp 97.5(O); Pulse Ox 100% ; Pain 5/10; kr3 09:30 Body Mass Index 37.91 (97.07 kg, 160.02 cm) ct3 MDM: 09:47 IV Saline Lock ordered. cc10 09:47 ketorolac 30 mg IVP once ordered. cc10 09:47 UCG by Nursing ordered. cc10 09:47 Undress patient appropriately for examination ordered. cc10 09:48 -US Pelvic Non-Ob Complete Ordered. EDMS 09:48 DUPLEX SCAN LIMITED (DOPPLER)+US Ordered. EDMS 09:48 CBC with Diff Ordered. EDMS 09:48 BMP Ordered. EDMS 09:48 Hcg, Serum Quantitative Ordered. EDMS 09:48 UA Ordered. EDMS 09:48 NOTHING BY MOUTH+DIET ordered. EDMS 10:12 Financial registration complete. lg 10:43 Transvaginal NON- US Ordered. EDMS 11:12 CBC with Diff Reviewed. cc10 11:12 BMP Reviewed. cc10 11:12 UA Reviewed. cc10 11:12 Hcg, Serum Quantitative Reviewed. cc10 11:12 -US Pelvic Non-Ob Complete Reviewed. cc10 11:16 CT ABD & PELVIS: No Contrast Ordered. EDMS 13:55 T-Sheet-- Draft Copy was scanned into [employer] and attached to record. gb 14:16 [facility] Payment Agreement was scanned into [employer] and attached to record. Point of Care Testing: Urine : 10:10 hCG Reading: Negative; jam1 Ranges: Administered Medications: 10:06 Drug: ketorolac 30 mg [ketorolac 30 mg/mL (1 mL) injection solution (1 mL)] Route: IVP; kr3 Site: right hand; 10:41 Follow up: Pain 12/01 Adult dsf Signatures: Dispatcher [employer] Freida Johnson, RN RN Jane Fuller, Reg Reg gb Pamela Norton, Reg Reg lg Alla Bower RN RN kr3 Tina Monet RN RN dsf Juan Ramon Mcdaniels, PATatiana PATatiana cc10 The chart was reviewed and I authenticate all verbal orders and agree with the evaluation and treatment provided.Attachments: 13:55 T-Sheet-- Draft Copy gb 14:16 [facility] Payment Agreement lg Chart Complete MTDD
== END 2016-06-05 11:54 | disposition home or self-care (01) ==
LOC: M ED 09:29
DX: N23 Unspecified renal colic (principal); K59.00 Constipation, unspecified; Z87.42 Personal history of other diseases of the female genital tract
CPT/HCPCS: 74176; 76830; 76856; 80048; 81001; 81025; 84702; 85025; 93976; 96374; 99284; J1885

== ENCOUNTER 2017-02-10 07:37 | Day surgery (SDC) | payer OTHER ==
[~2017-02-10] VITALS: Ht 160 cm; Wt 83.9 kg
[~2017-02-10 07:37] MED LIST: ADVI200C5 PO
[2017-02-10] MEDS ORDERED: ACETAMINOPHEN 650 MG SUPP PR ONE (07:45)
[2017-02-10] MEDS ORDERED: LR 1,000 ML IV SCH ×2 (07:45→14:30)
[2017-02-10 08:07] LABS: MEAN CORPUSCULAR HEMOGLOBIN 27.2 pg (27.0-33.0); MEAN CORPUSCULAR HGB CONC 32.6 g/dl (32.0-36.5); MEAN CORPUSCULAR VOLUME 83.5 fl (80.0-96.0); WHITE BLOOD COUNT 5.2 K/mm3 (4.0-10.0)
[2017-02-10 08:38] LABS: ANION GAP 6 MEQ/L (8-16); BLOOD UREA NITROGEN 9 MG/DL (7-18); CARBON DIOXIDE LEVEL 27 MEQ/L (21-32); CHLORIDE LEVEL 110 MEQ/L (98-107); CREATININE FOR GFR 0.53 MG/DL (0.55-1.02); GLUCOSE, FASTING 91 MG/DL (70-105); HCG, SERUM QUANTITATIVE < 1.0 MIU/ML; POTASSIUM SERUM 4.3 MEQ/L (3.5-5.1); SODIUM LEVEL 143 MEQ/L (136-145)
[2017-02-10] MEDS ORDERED: BUPIVACAINE HCL 0.5% 10 ML VIAL As Ordered ONE (12:58)
[2017-02-10] MEDS ORDERED: ACETAMINOPHEN 650 MG SUPP As Ordered ONE (12:58)
[2017-02-10] MEDS ORDERED: METHYLENE BLUE 0.5% (5MG/ML) 10 ML AMP (PROVAYBLUE)(Q9968 PER 1MG) As Ordered ONE (13:00)
[2017-02-10] MEDS ORDERED: MIDAZOLAM INJ 2 MG/2 ML VIAL (J2250) As Ordered ONE ×2 (13:22→14:15)
[2017-02-10] MEDS ORDERED: fentaNYL 100 MCG/2 ML INJECTION (J3010) As Ordered ONE ×3 (13:22→14:15)
[2017-02-10] MEDS ORDERED: LIDOCAINE 2% INJ 100 MG/5 ML SDV (FOR ANES.) As Ordered ONE (13:23)
[2017-02-10] MEDS ORDERED: PROPOFOL 200 MG/20 ML VIAL As Ordered ONE (13:23)
[2017-02-10] MEDS ORDERED: dexameTHASONE 4 MG/ML 1ML VIAL (J1100) As Ordered ONE (13:24)
[2017-02-10] MEDS ORDERED: ROCURONIUM BROMIDE 50 MG/5 ML VIAL/SYRINGE As Ordered ONE (13:24)
[2017-02-10] MEDS ORDERED: METOCLOPRAMIDE INJ 10MG/2ML VIAL (J2765) As Ordered ONE (13:24)
[2017-02-10] MEDS ORDERED: ONDANSETRON 4MG/2ML VIAL (J2405) As Ordered ONE (13:24)
[2017-02-10] MEDS ORDERED: NEOSTIGMINE 1MG/ML 5 ML SYRINGE (J2710) As Ordered ONE (13:32)
[2017-02-10] MEDS ORDERED: GLYCOPYRROLATE INJ 0.2 MG/ML 2 ML VIAL As Ordered ONE (13:32)
[2017-02-10] MEDS ORDERED: KETOROLAC 60 MG/2 ML VIAL (J1885) As Ordered ONE (13:34)
[2017-02-10] MEDS ORDERED: PERCOCET 5MG/325MG TAB PO PRN (14:30)
[2017-02-10] MEDS ORDERED: HYDROmorphone HCL 1 MG/ML SYRINGE (J1170) IV PRN (14:30)
[2017-02-10] MEDS ORDERED: ONDANSETRON 4MG/2ML VIAL (J2405) IV PRN (14:30)
[2017-02-10] MEDS ORDERED: fentaNYL 100 MCG/2 ML INJECTION (J3010) IV PRN (14:30)
[2017-02-10 16:00] VITALS: BP 117/72
--- NOTE | 2017-02-16 09:04 | RO ---
DATE OF PROCEDURE: 02/10/2017 PREOPERATIVE DIAGNOSIS: Chronic constipation and chronic pain. POSTOPERATIVE DIAGNOSIS: Stage III endometriosis, cervical stenosis, corpus luteum right side, hydatid morgagni left tube. OPERATION PROPOSED: Diagnostic laparoscopy, hysteroscopy, dilation and curettage. OPERATION PERFORMED: Diagnostic laparoscopy. SURGEON: Richar Castellon MD COUNTERINTELLIGENCE AGENT: ANESTHESIA: General. ESTIMATED BLOOD LOSS: Less than 20 mL. DESCRIPTION OF PROCEDURE: Under adequate anesthesia, prepped and draped in lithotomy position, Escobar catheter in the bladder draining clear urine. Acetaminophen suppository 1300 mg per rectum. Uterine elevator placed on the endocervical canal. No antibiotics required. Time-out was performed. Sequentials were on board. Prepped and draped in lithotomy position. The cervix was grasped with a single-tooth tenaculum and we found that there was significant cervical stenosis and therefore, we elected to wait and under direct vision to put in the uterine manipulator. Reprepping and draping, a small subumbilical incision was made spread with the Nicci. Local anesthetic 2 mL into the injection site and by direct entry into the abdomen with a 5 mm port. No hemorrhage, infection, perforation or bleeding. We then inflated the abdomen with 3.9 liters of CO2 to flow rate of 14 to a pressure of 15. We then put a peritoneal dialysis (PD) port on the left side to use as a manipulator and on direct visualization the uterus itself appeared to be normal, retroverted, retroflexed, normal size. The interesting thing is when you anteverted the uterus there was multiple spots of endometriosis all along the cul-de-sac area in various stages in forms, black areas, flaherty areas, white areas, red areas, which possibly could be giving her the chronic pain and chronic constipation. The review of the right upper quadrant was normal. The gallbladder area and the sigmoid were normal. The appendiceal area was normal. The right tube and ovary appeared to be normal. The left ovary appeared to be normal and the left tube appeared to be normal despite the fact that she had a left ectopic . There was no external visualization of any abnormality of the tube. It was not foreshortened. It did not look scarred. 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 The only evidence of endometriosis was on the peritoneal surfaces in the cul-de-sac around where the rectosigmoid area is. No evidence of endometriosis on the anterior aspect of the bladder and no evidence on the tubes or the ovaries. She had some hemosiderin staining in the cul-de-sac as her last period was 01/23/2017 and there was residual their present. We feel the plan of management for this lady should be probably 3 months of Depo Lupron followed up by either Depo-Provera or continuous oral contraceptives. In regards to her cervical stenosis, we did not explore that area. We just got to dilate her in and if the patient wishes to have a Mirena intrauterine contraceptive device (IUCD) it would probably have to be put in under general anesthetic. With instrument pad count correct to the 3 mm port on the left side was removed and then under direct vision exteriorizing the gas the 5 mm port was removed. Subcuticular stitches were placed. Marcaine 0.25%, 2 mL in each incisional site and skin tapes were placed. The uterine elevator was removed. The Escobar catheter was removed and the patient was sent to recovery in good condition. Edited: 02/16/2017 0919
== END 2017-02-10 16:21 | disposition home or self-care (01) ==
LOC: M SDC 07:37
PROVIDERS: ATTEND Obstetrics & Gynecology
DX: N80.3 Endometriosis of pelvic peritoneum (principal); N88.2 Stricture and stenosis of cervix uteri; N83.10 Corpus luteum cyst of ovary, unspecified side; Q50.4 Embryonic cyst of fallopian tube; K59.00 Constipation, unspecified; Z91.09 Other allergy status, other than to drugs and biological substances
CPT/HCPCS: 36415; 49320; 80048; 84702; 85027; J1100; J1885; J2250; J2405; J2710; J2765; J3010

== ENCOUNTER 2017-05-30 20:28 | Emergency (ER) | payer SELFPAY, OTHER ==
[2017-05-30] MEDS ORDERED: ONDANSETRON 4MG/2ML VIAL (J2405) IV (21:15)
[2017-05-30] MEDS ORDERED: MORPHINE 4 MG/ML 1ML VIAL (J2270) IV (21:15)
[2017-05-30] MEDS: MORPHINE 10 MG/ML 1ML VIAL (J2270) IM (21:31)
[2017-05-30] MEDS: ONDANSETRON 4 MG ORAL DISINTEGRATING TAB (S0181) PO (21:31)
[2017-05-30 21:42] LABS: BASO % 0.6 % (0.0-1.0); EOS # 0.1 10^3/uL (0.0-0.50); EOS % 0.8 % (0.0-3.0); HEMATOCRIT 35.9 % (36.0-47.0); HEMOGLOBIN 11.4 g/dl (12.0-16.0); IMMATURE GRANULOCYTE % 0.3 % (0-0); LYMPH # 2.5 10^3/uL (1.5-6.5); LYMPH % 35.5 % (24.0-44.0); MEAN CORPUSCULAR HEMOGLOBIN 26.1 pg (27.0-33.0); MEAN CORPUSCULAR HGB CONC 31.8 g/dl (32.0-36.5); MEAN CORPUSCULAR VOLUME 82.3 fl (80.0-96.0); MONO # 0.5 10^3/uL (0.0-0.8); MONO % 7.3 % (0.0-5.0); NEUTROPHILS # 3.9 10^3/uL (1.8-7.7); NEUTROPHILS % 55.5 % (36.0-66.0); PLATELET COUNT, AUTOMATED 258 10^3/uL (150-450); RED BLOOD COUNT 4.36 10^6/uL (4.00-5.40); RED CELL DISTRIBUTION WIDTH 15.5 % (11.5-14.5); WHITE BLOOD COUNT 7.1 10^3/uL (4.0-10.0)
[2017-05-30 21:52] LABS: CONTROL LINE HCG INT CTR LINE PRESENT; HCG, SERUM QUALITATIVE NEGATIVE (NEGATIVE)
[2017-05-30 21:55] LABS: ANION GAP 7 MEQ/L (8-16); BLOOD UREA NITROGEN 12 MG/DL (7-18); CALCIUM LEVEL 8.8 MG/DL (8.5-10.1); CARBON DIOXIDE LEVEL 27 MEQ/L (21-32); CHLORIDE LEVEL 104 MEQ/L (98-107); CREATININE FOR GFR 0.57 MG/DL (0.55-1.02); GLUCOSE, FASTING 94 MG/DL (70-105); POTASSIUM SERUM 3.6 MEQ/L (3.5-5.1); SODIUM LEVEL 138 MEQ/L (136-145)
[2017-05-30] MEDS: PERCOCET 5MG/325MG TAB PO (23:16)
[2017-05-30] MEDS: KETOROLAC 60 MG/2 ML VIAL (J1885) IM (23:16)
[2017-05-31] MEDS: OXYCODONE/APAP 5MG/325MG(BULK FOR ED) 1 TABLET PO (00:40)
== END 2017-05-31 00:58 | disposition home or self-care (01) ==
LOC: M ED 05-31 00:58
DX: S06.0X9A Concussion with loss of consciousness of unspecified duration, initial encounter (principal); V47.5XXA Car driver injured in collision with fixed or stationary object in traffic accident, initial encounter; Y92.410 Unspecified street and highway as the place of occurrence of the external cause; Y93.89 Activity, other specified; Y99.8 Other external cause status; M54.2 Cervicalgia; N80.9 Endometriosis, unspecified
CPT/HCPCS: J1885

== ENCOUNTER 2018-01-03 16:37 | Emergency (ER) | payer OTHER ==
[2018-01-03] MEDS: ONDANSETRON 4MG/2ML VIAL (J2405) IV (17:51)
[2018-01-03] MEDS: NS 1,000 ML IV (17:51)
[2018-01-03 18:02] LABS: BASO % 0.3 % (0.0-1.0); EOS # 0.1 10^3/uL (0.0-0.50); EOS % 0.5 % (0.0-3.0); HEMATOCRIT 37.8 % (36.0-47.0); HEMOGLOBIN 11.7 g/dl (12.0-15.5); IMMATURE GRANULOCYTE % 0.3 % (0-3.0); LYMPH # 1.9 10^3/uL (1.5-6.5); LYMPH % 15.8 % (24.0-44.0); MEAN CORPUSCULAR HEMOGLOBIN 26.8 pg (27.0-33.0); MEAN CORPUSCULAR VOLUME 86.7 fl (80.0-96.0); MONO # 0.8 10^3/uL (0.0-0.8); MONO % 6.7 % (0.0-5.0); NEUTROPHILS # 8.9 10^3/uL (1.8-7.7); NEUTROPHILS % 76.4 % (36.0-66.0); PLATELET COUNT, AUTOMATED 276 10^3/uL (150-450); RED BLOOD COUNT 4.36 10^6/uL (4.00-5.40); RED CELL DISTRIBUTION WIDTH 15.1 % (11.5-14.5); WHITE BLOOD COUNT 11.7 10^3/uL (4.0-10.0)
[2018-01-03 18:19] LABS: ANION GAP 9 MEQ/L (8-16); BLOOD UREA NITROGEN 13 MG/DL (7-18); CALCIUM LEVEL 8.7 MG/DL (8.5-10.1); CARBON DIOXIDE LEVEL 27 MEQ/L (21-32); CHLORIDE LEVEL 106 MEQ/L (98-107); CREATININE FOR GFR 0.65 MG/DL (0.55-1.30); GLOMERULAR FILTRATION RATE > 60.0 (>60); GLUCOSE, FASTING 90 MG/DL (70-100); POTASSIUM SERUM 3.9 MEQ/L (3.5-5.1); SODIUM LEVEL 142 MEQ/L (136-145)
[2018-01-03] MEDS: KETOROLAC 30 MG/ML VIAL (J1885) IV (18:20)
[2018-01-03 18:27] LABS: KETONE, URINE AUTO RFX NEGATIVE (NEGATIVE); MUCUS, URINE RFX SMALL (NEGATIVE); NITRITE, URINE AUTO RFX NEGATIVE (NEGATIVE); RBC, URINE AUTO RFX 39 /HPF (0-3); SPECIFIC GRAVITY UR AUTO RFX 1.023 (1.002-1.035); SQUAM EPITHELIAL CELL UR AURFX 1 /HPF (0-6); YEAST LIKE CELL URINE AUTO RFX SMALL
[2018-01-03 18:34] LABS: LEUKOCYTE ESTERASE UR AUTO RFX TRACE (NEGATIVE); WBC, URINE AUTO RFX 12 /HPF (0-3)
[2018-01-03] MEDS: ONDANSETRON 4 MG ORAL DISINTEGRATING TAB (Q0162 PER 1MG) PO (19:22)
[2018-01-03] MEDS: KETOROLAC TROMETHAMINE 10 MG TAB PO (19:22)
== END 2018-01-03 19:30 | disposition home or self-care (01) ==
LOC: M ED 16:37
DX: R10.2 Pelvic and perineal pain (principal)
CPT/HCPCS: J2405

== ENCOUNTER 2018-02-26 10:59 | Emergency (ER) | payer OTHER ==
[2018-02-26] MEDS: KETOROLAC 60 MG/2 ML VIAL (J1885) IM (11:30)
== END 2018-02-26 12:13 | disposition home or self-care (01) ==
LOC: M ED 10:59
DX: N94.6 Dysmenorrhea, unspecified (principal)
CPT/HCPCS: J1885

== ENCOUNTER 2018-08-02 11:09 | Emergency (ER) | payer OTHER ==
[~2018-08-02] VITALS: Ht 160 cm; Wt 84.1 kg
[~2018-08-02 11:09] MED LIST changes: +APAP325T4 PO; +KETO10TAB PO; +NAPR-50 PO; +PERC5TAB12 PO; +ZOFR4TAB14 PO
[2018-08-02] MEDS ORDERED: prenatal vits (11:15)
[2018-08-02] MEDS ORDERED: NS 1,000 ML IV ONE (12:30)
[2018-08-02 12:59] LABS: BASO % 0.2 % (0.0-1.0); EOS % 0.3 % (0.0-3.0); HEMATOCRIT 35.9 % (36.0-47.0); HEMOGLOBIN 11.7 g/dl (12.0-15.5); LYMPH # 1.7 10^3/uL (1.5-6.5); LYMPH % 17.1 % (24.0-44.0); MEAN CORPUSCULAR HEMOGLOBIN 29.5 pg (27.0-33.0); MEAN CORPUSCULAR HGB CONC 32.6 g/dl (32.0-36.5); MEAN CORPUSCULAR VOLUME 90.7 fl (80.0-96.0); MONO # 0.5 10^3/uL (0.0-0.8); MONO % 5.3 % (0.0-5.0); NEUTROPHILS # 7.5 10^3/uL (1.8-7.7); NEUTROPHILS % 76.8 % (36.0-66.0); PLATELET COUNT, AUTOMATED 250 10^3/uL (150-450); RED BLOOD COUNT 3.96 10^6/uL (4.00-5.40); WHITE BLOOD COUNT 9.8 10^3/uL (4.0-10.0)
[2018-08-02 13:05] LABS: AMORPHOUS SEDIMENT SMALL (NEGATIVE); APPEARANCE, URINE HAZY (CLEAR); BACTERIA, URINE AUTO NEGATIVE (NEGATIVE); BILIRUBIN, URINE AUTO NEGATIVE (NEGATIVE); BLOOD, URINE BLOOD NEGATIVE (NEGATIVE); COLOR, URINE YELLOW (YELLOW); GLUCOSE, URINE (UA) AUTO NEGATIVE (NEGATIVE); KETONE, URINE AUTO NEGATIVE (NEGATIVE); LEUKOCYTE ESTERASE, URINE AUTO NEGATIVE (NEGATIVE); MUCUS, URINE SMALL (NEGATIVE); NITRITE, URINE AUTO NEGATIVE (NEGATIVE); PROTEIN, URINE AUTO NEGATIVE (NEGATIVE); RBC, URINE AUTO 0 /HPF (0-3); SPECIFIC GRAVITY URINE AUTO 1.019 (1.002-1.035); SQUAMOUS EPITHELIAL CELL UR AU 4 /HPF (0-6); UROBILINOGEN, URINE AUTO 0.2 mg/dL (0.0-2.0); WBC, URINE AUTO 1 /HPF (0-3)
[2018-08-02 13:24] LABS: BLOOD UREA NITROGEN 9 MG/DL (7-18); CALCIUM LEVEL 8.8 MG/DL (8.5-10.1); CARBON DIOXIDE LEVEL 23 MEQ/L (21-32); CHLORIDE LEVEL 107 MEQ/L (98-107); CREATININE FOR GFR 0.48 MG/DL (0.55-1.30); GLOMERULAR FILTRATION RATE > 60.0 (>60); GLUCOSE, FASTING 81 MG/DL (70-100); POTASSIUM SERUM 4.5 MEQ/L (3.5-5.1); SODIUM LEVEL 138 MEQ/L (136-145)
[2018-08-02 14:44] VITALS: BP 102/59
--- NOTE | 2018-08-02 22:05 | ECGEPIP ---
Stationary ECG Study [facility] - ED Test Date: 2018-08-02 Pat Name: SHIRA MARQUEZ Department: Room: - Gender: F Process Controller: SASKIA : 1995 Requested By: REHAN HANCOCK PA-C. Order Number: [id number] Reading MD: Miguel Jones Measurements Intervals Ackerman Rate: 55 P: 41 AL: 158 QRS: 67 QRSD: 103 T: 16 QT: 402 QTc: 385 Interpretive Statements SINUS BRADYCARDIA Electronically Signed On 08-02-2018 22:05:21 EDT by Miguel Jones
== END 2018-08-02 14:47 | disposition home or self-care (01) ==
LOC: M ED 11:09
DX: O99.89 Other specified diseases and conditions complicating pregnancy, childbirth and the puerperium (principal); R55 Syncope and collapse; R00.1 Bradycardia, unspecified; Z3A.19 19 weeks gestation of pregnancy; Z91.048 Other nonmedicinal substance allergy status